=== PATIENT | male | born 1940 | race Caucasian/White ===

== ENCOUNTER 2022-01-28 15:24 | Emergency (ER) | payer MEDICARE, BC ==
[2022-01-28 15:31] VITALS: BP 130/70; PULSE 72
[2022-01-28] MEDS: Sodium Chloride 0.9% 10 ML Syringe FLUSH PRN (15:40)
[2022-01-28 16:08] LABS: ANION GAP 16.6 mmol/L (5-15)
[2022-01-28 16:32] LABS: PTT,PARTIAL THROMBOPLSTIN TIME 34.3 SEC (22.8-31.4)
== END 2022-01-28 17:05 | disposition home or self-care (01) ==
LOC: KA.ED 15:24
DX: S22.32XA Fracture of one rib, left side, initial encounter for closed fracture (principal); K64.4 Residual hemorrhoidal skin tags; I48.91 Unspecified atrial fibrillation; I11.0 Hypertensive heart disease with heart failure; I50.9 Heart failure, unspecified; I25.10 Atherosclerotic heart disease of native coronary artery without angina pectoris; E78.00 Pure hypercholesterolemia, unspecified; J44.9 Chronic obstructive pulmonary disease, unspecified; K21.9 Gastro-esophageal reflux disease without esophagitis; Z88.5 Allergy status to narcotic agent; Z79.899 Other long term (current) drug therapy; Z79.01 Long term (current) use of anticoagulants; Z79.82 Long term (current) use of aspirin; W18.30XA Fall on same level, unspecified, initial encounter
CPT/HCPCS: 36415; 71045; 71100-LT; 80053; 83690; 84484; 85025; 85610; 85730; 93005; 99284; J3490

== ENCOUNTER 2023-01-21 08:05 | Emergency (ER) | payer MEDICARE, BC ==
[2023-01-21 08:17] VITALS: BP 117/56; PULSE 74
== END 2023-01-21 10:00 | disposition home or self-care (01) ==
LOC: KA.ED 08:05
DX: L76.22 Postprocedural hemorrhage of skin and subcutaneous tissue following other procedure (principal); I48.91 Unspecified atrial fibrillation; I25.10 Atherosclerotic heart disease of native coronary artery without angina pectoris; J44.9 Chronic obstructive pulmonary disease, unspecified; I11.0 Hypertensive heart disease with heart failure; I50.9 Heart failure, unspecified; E66.9 Obesity, unspecified; Z68.31 Body mass index [BMI] 31.0-31.9, adult; Z88.5 Allergy status to narcotic agent; Z79.01 Long term (current) use of anticoagulants; Z79.899 Other long term (current) drug therapy; Z87.891 Personal history of nicotine dependence
CPT/HCPCS: 99283

== ENCOUNTER 2024-05-30 08:36 | Emergency (ER) | payer MEDICARE, BC ==
[2024-05-30 08:50] VITALS: BP 124/68; PULSE 84
[2024-05-30 09:15] LABS: BASOPHILS ABSOLUTE AUTO 0.02 10^3/uL (0.00-0.10); BASOPHILS PERCENT AUTO 0.4 % (0.0-1.0); EOSINOPHILS PERCENT AUTO 4.1 % (1.0-3.0); HEMATOCRIT 30.7 % (40.0-52.0); HEMOGLOBIN 9.6 g/dL (13.0-17.0); IMMATURE GRAN ABSOLUTE AUTO 0.04 10^3/uL (0.00-0.50); IMMATURE GRAN PERCENT AUTO 0.8 % (0.0-5.0); LYMPHOCYTES ABSOLUTE AUTO 0.51 10^3/uL (1.00-4.00); LYMPHOCYTES PERCENT AUTO 10.3 % (20.0-40.0); MEAN CORPUSCULAR HEMOGLOBIN 25.8 pg (27.0-31.0); MEAN CORPUSCULAR HGB CONC 31.3 g/dL (32.0-36.0); MEAN CORPUSCULAR VOLUME 82.5 fL (82.0-92.0); MEAN PLATELET VOLUME 11.4 fL (7.4-10.4); MONOCYTES ABSOLUTE AUTO 0.67 10^3/uL (0.10-0.80); MONOCYTES PERCENT AUTO 13.6 % (2.0-8.0); NEUTROPHILS ABSOLUTE AUTO 3.49 10^3/uL (2.50-7.00); NEUTROPHILS PERCENT AUTO 70.8 % (50.0-70.0); PLATELET COUNT,PLT 127 10^3/uL (150-400); RED BLOOD CELL COUNT 3.72 10^6/uL (4.50-6.00); RED CELL DISTRIBUTION WIDTH 17.9 % (11.5-14.5); WHITE BLOOD CELL COUNT,WBC 4.93 10^3/uL (5.00-10.00)
== END 2024-05-30 09:57 | disposition home or self-care (01) ==
LOC: KA.ED 08:36
DX: J06.9 Acute upper respiratory infection, unspecified (principal); B97.89 Other viral agents as the cause of diseases classified elsewhere; I48.91 Unspecified atrial fibrillation; I11.0 Hypertensive heart disease with heart failure; I50.9 Heart failure, unspecified; I25.10 Atherosclerotic heart disease of native coronary artery without angina pectoris; E78.00 Pure hypercholesterolemia, unspecified; I25.2 Old myocardial infarction; Z95.0 Presence of cardiac pacemaker; Z95.5 Presence of coronary angioplasty implant and graft; J44.9 Chronic obstructive pulmonary disease, unspecified; E66.9 Obesity, unspecified; Z68.31 Body mass index [BMI] 31.0-31.9, adult; Z90.49 Acquired absence of other specified parts of digestive tract; Z79.01 Long term (current) use of anticoagulants; Z79.82 Long term (current) use of aspirin; Z79.899 Other long term (current) drug therapy; Z88.5 Allergy status to narcotic agent
CPT/HCPCS: 36415; 71046; 85025; 99283; 99284

== ENCOUNTER 2024-08-10 10:30 | Emergency (ER) | payer MEDICARE, BC ==
[2024-08-10 10:47] VITALS: BP 134/71; PULSE 73
== END 2024-08-10 11:30 | disposition home or self-care (01) ==
LOC: KA.ED 10:30
DX: M46.1 Sacroiliitis, not elsewhere classified (principal); I11.0 Hypertensive heart disease with heart failure; I50.9 Heart failure, unspecified; E78.00 Pure hypercholesterolemia, unspecified; J44.89 Other specified chronic obstructive pulmonary disease; E66.9 Obesity, unspecified; Z90.49 Acquired absence of other specified parts of digestive tract; Z79.899 Other long term (current) drug therapy; Z79.82 Long term (current) use of aspirin; Z88.5 Allergy status to narcotic agent
CPT/HCPCS: 72202; 99283; 99284

== ENCOUNTER 2024-09-15 19:29 | Emergency (ER) | payer MEDICARE, BC ==
[2024-09-15 20:05] VITALS: BP 98/49; PULSE 70
== END 2024-09-15 20:33 | disposition home or self-care (01) ==
LOC: KA.ED 19:29
DX: I95.2 Hypotension due to drugs (principal); I48.91 Unspecified atrial fibrillation; I11.0 Hypertensive heart disease with heart failure; I50.9 Heart failure, unspecified; I25.2 Old myocardial infarction; I25.10 Atherosclerotic heart disease of native coronary artery without angina pectoris; Z95.0 Presence of cardiac pacemaker; Z88.5 Allergy status to narcotic agent; Z79.82 Long term (current) use of aspirin; Z79.899 Other long term (current) drug therapy
CPT/HCPCS: 99284

== ENCOUNTER 2024-09-17 12:14 | Emergency (ER) | payer MEDICARE, BC ==
[2024-09-17] MEDS ORDERED: Naloxone 0.4 MG/ML SDV IVPUSH PRN (12:43)
[2024-09-17] MEDS: fentaNYL 100 MCG/2 ML SDV IVPUSH ONE (12:51)
[2024-09-17] MEDS: Sodium Chloride 0.9% 500 ML IV ONE (13:02)
[2024-09-17] MEDS: Sodium Chloride 0.9% 500 ML ONE (13:13)
[2024-09-17] MEDS: Enoxaparin 100 MG/1 ML Syringe SUBCUT ONE (13:19)
[2024-09-17 14:43] VITALS: BP 98/46; PULSE 72
== END 2024-09-17 13:35 ==
LOC: KA.ED 12:14
DX: D64.9 Anemia, unspecified (principal); I11.0 Hypertensive heart disease with heart failure; I50.9 Heart failure, unspecified; I25.10 Atherosclerotic heart disease of native coronary artery without angina pectoris; I25.2 Old myocardial infarction; I48.91 Unspecified atrial fibrillation; Z95.0 Presence of cardiac pacemaker; Z95.5 Presence of coronary angioplasty implant and graft; Z96.641 Presence of right artificial hip joint; Z79.01 Long term (current) use of anticoagulants; Z88.5 Allergy status to narcotic agent; Z79.899 Other long term (current) drug therapy; Z79.82 Long term (current) use of aspirin
CPT/HCPCS: 96361; 96372; 96374; 99285-25; J1650; J3010; J7030